=== PATIENT | male | born 1980 ===

== ENCOUNTER 2020-11-21 22:49 | Emergency (ER) | payer SELFPAY ==
[~2020-11-21] VITALS: Ht 160 cm; Wt 63.6 kg
[2020-11-21 22:53] VITALS: Ht 160 cm; Wt 63.6 kg
[2020-11-21 23:33] LABS: BASOPHILS 0.5 % (0-2); EOSINOPHILS 2.3 % (0-7); HEMATOCRIT 44.1 % (42.0-54.0); HEMOGLOBIN 14.7 g/dL (13.5-17.5); LYMPHOCYTES 11.4 % (15-50); MCHC 33.2 g/dL (31.0-37.0); MCV 93.2 fL (80.0-100.0); MEAN PLATELET VOLUME 7.6 fL (7.4-10.4); MONOCYTES 6.6 % (2-11); NEUTROPHILS 79.2 % (40-80); PLATELET COUNT 296 10x3/uL (130-400); RBC 4.74 10x6/uL (4.20-6.10); RDW 13.7 % (11.5-14.5); WBC 20.2 10x3/uL (4.8-10.8)
[2020-11-21 23:50] LABS: BILIRUBIN NEGATIVE (NEGATIVE); KETONE NEGATIVE mg/dL (< 1+); NITRITE NEGATIVE (NEGATIVE); PH 5.5 (5.0-8.0); SQUAMOUS EPITHELIAL <1 HPF (0-4); UROBILINOGEN NORMAL mg/dL (< 2); WHITE CELLS - URINE 4 HPF (0-1)
[2020-11-21 23:53] LABS: CALC OSMOLALITY 277 mosm/kg (275-300); CALCIUM 8.4 mg/dL (8.5-10.1); CARBON DIOXIDE 30.5 mmol/L (21.0-32.0); CHLORIDE - SERUM 103 mmol/L (98-107); CREATININE - SERUM 1.1 mg/dL (0.6-1.3); GLUCOSE 111 mg/dL (74-106); POTASSIUM - SERUM 3.9 mmol/L (3.5-5.1); SODIUM 139 mmol/L (136-145); UREA NITROGEN 10 mg/dL (7-18); eGFR NON AFRICAN AMERICAN 79 mL/min (90-120)
[2020-11-21 23:57] LABS: UDS - AMPHET NEGATIVE QUAL (NEGATIVE); UDS - BARB NEGATIVE QUAL (NEGATIVE); UDS - BENZO NEGATIVE QUAL (NEGATIVE); UDS - COCAINE NEGATIVE QUAL (NEGATIVE); UDS - OPIATE NEGATIVE QUAL (NEGATIVE); UDS - PCP NEGATIVE QUAL (NEGATIVE); UDS - THC POSITIVE QUAL (NEGATIVE)
[2020-11-21 23:58] LABS: ALBUMIN 4.4 g/dL (3.4-5.0); ALKALINE PHOSPHATASE 66 U/L (30-120); ALT (SGPT) 30 U/L (10-68); BILIRUBIN - TOTAL 0.22 mg/dL (0.2-1.3); LIPASE 74 U/L (73-393); PROTEIN - SERUM 7.8 g/dL (6.4-8.2)
[2020-11-22 00:01] LABS: C-REACTIVE PROTEIN < 0.2 mg/dL (0.0-0.9)
[2020-11-22] MEDS ORDERED: FLOMAX0.4 MG PO (02:08)
[2020-11-22] MEDS ORDERED: HYDROCODONE-AC1 EAC2 PO (02:08)
[2020-11-22 02:37] VITALS: BP 128/74
== END 2020-11-22 02:40 | disposition home or self-care (01) ==
LOC: D.ER 22:49
PROVIDERS: Family Medicine
DX: R10.9 Unspecified abdominal pain (principal); N20.1 Calculus of ureter